=== PATIENT | female | born 1995 | race Asian ===

== ENCOUNTER → 2018-01-11 | Outpatient (CLI) | payer OTHER ==
--- NOTE | 2018-01-12 07:58 | MAMMOGRAPHY REPORT ---
LIMITED ULTRASOUND OF LEFT BREAST: 01/11/2018 CLINICAL HISTORY: The patient reports a left breast lump which was found during an ultrasound perform ed in [place] recently. The outside ultrasound report and images are not available for review. COMPARISON: No prior exams were available for comparison. Findings: Real-time, high-resolution targeted ultrasound was performed of the area of the lump pointe d out by the patient, in the left breast at approximately 11:30, 4 cm from the nipple. At the site o f the palpable lump there is a lobulated hypoechoic solid mass which measures 2.4 x 1.2 x 1.7 cm. Th e margins are not completely circumscribed. Although this likely represents a fibroadenoma, the mass is indeterminate and ultrasound-guided core needle biopsy is recommended for further evaluation. IMPRESSION: ACR BI-RADS CATEGORY 4: SUSPICIOUS Hypoechoic 2.4 cm mass at the site of the palpable lump in the left 11:30 breast. Although this like ly represents a fibroadenoma, the mass is indeterminate and ultrasound-guided core needle biopsy is r ecommended for further evaluation. A phone call was made to the physician's office to confirm faxed results were received. The patient was verbally notified of the results. Carolyn Moser M.D. ah/:01/11/2018 14:03:18 Wrapper Stitcher: RT Balbina(Harvey)(M), [facility] letter sent: Abnormal 4/5 BI-RADS Code: ACR BI-RADS Category 4: Suspicious
== END | disposition home or self-care (01) ==
LOC: C.MAMM 13:38
PROVIDERS: ATTEND Obstetrics & Gynecology
DX: N63.20 Unspecified lump in the left breast, unspecified quadrant (principal)